=== PATIENT | female | born 1985 | race Caucasian/White ===

== ENCOUNTER 2021-09-13 17:34 | Inpatient (IN) | payer BC ==
[~2021-09-13 17:34] MED LIST: Oxytocin/Normal Saline 30 UNIT/500 ML BAG IV ONE
[2021-09-13] MEDS ORDERED: ceFAZolin 2 GM in Premix Bag 1 BAG IV ONE (17:44)
[2021-09-13] MEDS ORDERED: Carboprost Tromethamine 250 MCG/1 ML Amp IM PRN (17:44)
[2021-09-13] MEDS ORDERED: Sodium Chloride 0.9% 10 ML Syringe FLUSH PRN (17:44)
[2021-09-13] MEDS ORDERED: Methylergonovine 0.2 MG Tab PO PRN (17:44)
[2021-09-13] MEDS ORDERED: Citric Acid/Sodium Citrate Solution 30 ML Cup PO ONE (17:44)
[2021-09-13] MEDS ORDERED: Misoprostol 400 MCG (4 X 100 MCG TAB) RECTAL ONE (17:44)
[2021-09-13] MEDS ORDERED: Tranexamic Acid 1,000 MG in Sodium Chloride 0.9% 100 ML IV PRN (17:44)
[2021-09-13] MEDS ORDERED: Oxytocin 10 Units/1 ML SDV IM PRN (17:44)
[2021-09-13] MEDS ORDERED: Oxytocin/Normal Saline 30 UNIT/500 ML BAG IV SCH (17:45)
[2021-09-13] MEDS ORDERED: Lactated Ringers 1,000 ML IV SCH ×3 (17:45→19:45)
[2021-09-13] MEDS ORDERED: Oxytocin/Normal Saline 60 UNIT/1,000 ML BAG ONE (17:53)
[2021-09-13] MEDS ORDERED: diphenhydrAMINE 50 MG/ML SDV IVPUSH PRN (19:44)
[2021-09-13] MEDS ORDERED: Methylergonovine 0.2 MG/1 ML Amp IM PRN (19:44)
[2021-09-13] MEDS ORDERED: Naloxone 2 MG/2 ML Syringe IVPUSH PRN (19:44)
[2021-09-13] MEDS ORDERED: Acetaminophen 325 MG Tab PO PRN (19:44)
[2021-09-13] MEDS ORDERED: Acetaminophen/oxyCODONE 325-5 MG Tab PO PRN (19:44)
[2021-09-13] MEDS ORDERED: Ondansetron 4 MG/2 ML SDV IVPUSH PRN (19:44)
[2021-09-13] MEDS ORDERED: ePHEDrine 50 MG/ML SDV IVPUSH PRN (19:44)
[2021-09-13] MEDS ORDERED: Ketorolac 30 MG/ML SDV IVPUSH ONE (20:15)
[2021-09-13] MEDS: Sodium Chloride 0.9% 10 ML Syringe FLUSH SCH (21:04)
[2021-09-13] MEDS: Simethicone 80 MG Tab.Chew PO SCH (21:43)
[2021-09-14] MEDS: Ketorolac 30 MG/ML SDV IVPUSH SCH ×3 (02:09→13:30)
[2021-09-14] MEDS: Prenatal Multivitamin with Calcium/Folic Acid/Iron Tab PO SCH (08:30)
[2021-09-14] MEDS: Simethicone 80 MG Tab.Chew PO SCH ×4 (08:30→21:43)
[2021-09-14] MEDS: Docusate Sodium 100 MG Cap PO PRN ×2 (08:30→21:43)
[2021-09-14] MEDS: Sodium Chloride 0.9% 10 ML Syringe FLUSH SCH ×2 (08:56→22:41)
[2021-09-14] MEDS ORDERED: Measles, Mumps & Rubella Vaccine 0.5 ML SDV SUBCUT ONE (13:22)
[2021-09-14] MEDS: Ibuprofen 800 MG Tab PO PRN (21:43)
[2021-09-14] MEDS: Acetaminophen/oxyCODONE 325-5 MG Tab PO PRN (21:45)
[2021-09-15] MEDS: Prenatal Multivitamin with Calcium/Folic Acid/Iron Tab PO SCH (08:13)
[2021-09-15] MEDS: Docusate Sodium 100 MG Cap PO PRN ×2 (08:13→21:34)
[2021-09-15] MEDS: Acetaminophen/oxyCODONE 325-5 MG Tab PO PRN ×4 (08:14→21:35)
[2021-09-15] MEDS: Simethicone 80 MG Tab.Chew PO SCH ×4 (08:14→21:34)
[2021-09-15] MEDS ORDERED: Morphine PF 1 MG/ML Amp ONE (10:54)
[2021-09-15] MEDS ORDERED: Ondansetron 4 MG/2 ML SDV IV ONE (10:54)
[2021-09-15] MEDS ORDERED: Lactated Ringers 1,000 ML IV ONE (10:54)
[2021-09-15] MEDS ORDERED: Sodium Chloride 0.9% 10 ML Syringe IV ONE (10:54)
[2021-09-15] MEDS ORDERED: Dexamethasone 4 MG/ML SDV IV ONE (10:54)
[2021-09-15] MEDS: Ibuprofen 800 MG Tab PO PRN ×2 (11:32→19:58)
[2021-09-16] MEDS: Acetaminophen/oxyCODONE 325-5 MG Tab PO PRN ×2 (02:47→13:39)
[2021-09-16] MEDS: Prenatal Multivitamin with Calcium/Folic Acid/Iron Tab PO SCH (10:00)
[2021-09-16] MEDS: Simethicone 80 MG Tab.Chew PO SCH ×2 (10:00→13:39)
[2021-09-16 11:56] VITALS: BP 120/70; PULSE 74
[2021-09-16] MEDS ORDERED: ePHEDrine 50 MG/ML SDV IV ONE (12:14)
[2021-09-16] MEDS: Ibuprofen 800 MG Tab PO PRN (13:40)
== END 2021-09-16 12:15 | disposition home or self-care (01) | DRG 540 ==
LOC: DL.OBCHECK 17:34 → DL.OB 17:46 → OBSVTOIN 18:33 → DL.OB 18:33
PROVIDERS: ADMIT Family Medicine; ATTEND Family Medicine
PROC: 3E0234Z Introduction of Serum, Toxoid and Vaccine into Muscle, Percutaneous Approach (ICD-10-PCS; principal; 2021-09-13)
PROC: 10D00Z1 Extraction of Products of Conception, Low, Open Approach (ICD-10-PCS; 2021-09-13)
DX: O34.211 Maternal care for low transverse scar from previous cesarean delivery (principal); O99.284 Endocrine, nutritional and metabolic diseases complicating childbirth; E03.9 Hypothyroidism, unspecified; Z20.822 Contact with and (suspected) exposure to COVID-19; Z3A.39 39 weeks gestation of pregnancy; Z37.0 Single live birth; Z23 Encounter for immunization
CPT/HCPCS: 01961; 36415; 51702; 85025; 85027; 86592; 86850; 86900; 86901; 90471; 90707; A9270-GY; J0690; J1100; J1885; J2274; J2405; J2590; J3490; J7120; U0002